=== PATIENT | female | born 1995 | race Caucasian/White ===

== ENCOUNTER 2018-11-26 22:48 | Emergency (ER) | payer SELFPAY ==
[~2018-11-26] VITALS: Ht 144.8 cm; Wt 48.3 kg
[~2018-11-26 22:48] MED LIST: ACET500C5 PO; PREN-93 PO
[2018-11-26 22:50] VITALS: Ht 144.8 cm; Wt 48.3 kg
[2018-11-27 03:15] VITALS: BP 111/63; PULSE 65; RESP 18
== END 2018-11-27 03:16 | disposition home or self-care (01) ==
LOC: FTE 22:48
DX: R10.9 Unspecified abdominal pain (principal); R10.2 Pelvic and perineal pain; Z32.01 Encounter for pregnancy test, result positive
CPT/HCPCS: 76801; 76817; 80053; 81001; 81003; 81025; 82150; 83690; 84702; 85025; 86900; 86901; 87086

== ENCOUNTER 2018-11-30 10:23 | Emergency (ER) | payer MEDICAID ==
[~2018-11-30] VITALS: Wt 50.0 kg
[2018-11-30 10:28] VITALS: BP 114/56; PULSE 89; RESP 18
== END 2018-11-30 13:31 | disposition home or self-care (01) ==
LOC: E/R 10:23
DX: Z34.90 Encounter for supervision of normal pregnancy, unspecified, unspecified trimester (principal)
CPT/HCPCS: 84702; Z7502; 99283